=== PATIENT | male | born 1990 | race Caucasian/White ===

== ENCOUNTER 2018-10-27 06:29 | Emergency (ER) | payer OTHER ==
--- NOTE | 2018-10-27 06:58 | EDPHY ---
H & P Stated Complaint: L chest pain, L arm numbness, L side neck pain, dizzy Time Seen by Provider: 10/27/18 06:57 HPI/ROS: CHIEF COMPLAINT: Chest pain, arm pain, dizziness HISTORY OF PRESENT ILLNESS: The patient presents to the ED after he developed chest pain, left arm pain, left arm paresthesias and dizziness at 5:30 a.m. This morning. The patient is a daily drinker. He reports he drinks approximately a 5th of alcohol on a daily basis. The patient denies cutting back on that recently. The patient denies any history of exertional chest pain or shortness of breath. The patient has had some vague pain in the anterior aspect of his right leg over the past 6 weeks. The patient does endorse some mild symptoms of dyspnea and pleurisy. Patient denies any headache. He denies any fall or trauma. He denies neck pain or additional complaints. REVIEW OF SYSTEMS: A comprehensive 10 point review of systems is otherwise negative aside from elements mentioned in the history of present illness. Source: Patient Exam Limitations: No limitations - Personal History Current Tetanus Diphtheria and Acellular Pertussis (TDAP): No - Medical/Surgical History Hx Asthma: No Hx Chronic Respiratory Disease: No Hx Diabetes: No Hx Cardiac Disease: No Hx Renal Disease: No Hx Cirrhosis: No Hx Alcoholism: No Hx HIV/AIDS: No Hx Splenectomy or Spleen Trauma: No Other PMH: HTN - Social History Smoking Status: Heavy smoker - Physical Exam Exam: General Appearance: Alert, no distress Eyes: Pupils equal and round no pallor or injection ENT, Mouth: Mucous membranes moist Respiratory: There are no retractions, lungs are clear to auscultation Cardiovascular: Regular rate and rhythm Gastrointestinal: Abdomen is soft and nontender, no masses, bowel sounds normal Neurological: A&O, normal motor function, normal sensory exam, normal cranial nerves Skin: Warm and dry, no rashes Musculoskeletal: Neck is supple nontender Extremities: Tenderness to palpation over the right fibular head Constitutional: Initial Vital Signs Temperature (C) 36.8 C 10/27/18 06:30 Heart Rate 96 10/27/18 06:30 Respiratory Rate 18 10/27/18 06:30 Blood Pressure 137/105 H 10/27/18 06:30 O2 Sat (%) 98 10/27/18 06:30 O2 Delivery Mode Room Air Allergies/Adverse Reactions: No Known Allergies Allergy (Unverified 10/27/18 06:32) Home Medications: Medication Instructions Recorded NK [No Known Home Meds] 10/27/18 Medical Decision Making - Diagnostics EKG Interpretation: EKG: Complete interpretation has been separately recorded in the [facility] archive. Summary impression: Sinus rhythm, rate 89, no ischemic changes noted Imaging Results: Imaging Impressions Chest X-Ray 10/27/18 08:08 Impression: No focal pneumonia. ED Course/Re-evaluation: The patient presents the emergency department for evaluation of chest discomfort , dizziness and left arm paresthesias. The patient has no risk factors for coronary artery disease. He denies exertional chest pain or shortness of breath. He has a HEART score of 0-1. The patient did have some leg discomfort however has a negative D-dimer. I feel this adequately excludes thromboembolic disease. Chest x-ray demonstrates no evidence of a pneumonia or pneumothorax. The patient does have a history of significant alcohol consumption which certainly could be contributing to his symptoms today. Patient reports he has been in rehab facilities in the past for drug therapy. The patient is interested in considering outpatient resources for his alcohol dependence. The patient has seen Dr. Rocha at the [facility]. The patient will be discharged home at this point time. He is advised to follow up with his PCP for further evaluation management. Differential Diagnosis: Differential diagnosis considered includes acute coronary syndrome, dehydration , pneumonia, pneumothorax, pulmonary embolism - Data Points Laboratory Results: Laboratory Results 10/27/18 06:48 10/27/18 06:48 10/27/18 10/27/18 10/27/18 07:30 06:48 06:48 WBC 4.37 10^3/uL 10^3/uL (3.80-9.50) RBC 4.65 10^6/uL 10^6/uL (4.40-6.38) Hgb 16.3 g/dL g/dL (13.7-17.5) Hct 45.4 % % (40.0-51.0) MCV 97.6 fL fL (81.5-99.8) MCH 35.1 pg H pg (27.9-34.1) MCHC 35.9 g/dL g/dL (32.4-36.7) RDW 12.2 % % (11.5-15.2) Plt Count 184 10^3/uL 10^3/uL (150-400) MPV 9.4 fL fL (8.7-11.7) Neut % (Auto) 35.5 % L % (39.3-74.2) Lymph % (Auto) 49.0 % H % (15.0-45.0) [place] % (Auto) 12.4 % % (4.5-13.0) Eos % (Auto) 2.7 % % (0.6-7.6) Baso % (Auto) 0.2 % L % (0.3-1.7) Nucleat RBC Rel Count 0.0 % % (0.0-0.2) Absolute Neuts (auto) 1.55 10^3/uL L 10^3/uL (1.70-6.50) Absolute Lymphs (auto) 2.14 10^3/uL 10^3/uL (1.00-3.00) Absolute Monos (auto) 0.54 10^3/uL 10^3/uL (0.30-0.80) Absolute Eos (auto) 0.12 10^3/uL 10^3/uL (0.03-0.40) Absolute Basos (auto) 0.01 10^3/uL L 10^3/uL (0.02-0.10) Absolute Nucleated RBC 0.00 10^3/uL 10^3/uL (0-0.01) Immature Gran % 0.2 % % (0.0-1.1) Immature Gran # 0.01 10^3/uL 10^3/uL (0.00-0.10) D-Dimer < 0.27 ug/mLFEU ug/mLFEU (0.00-0.50) Sodium 141 mEq/L mEq/L (135-145) Potassium 4.0 mEq/L mEq/L (3.5-5.2) Chloride 108 mEq/L mEq/L (97-110) Carbon Dioxide 22 mEq/l mEq/l (22-31) Anion Gap 11 mEq/L mEq/L (6-14) BUN 12 mg/dL mg/dL (7-23) Creatinine 0.7 mg/dL mg/dL (0.7-1.3) Estimated GFR > 60 Glucose 92 mg/dL mg/dL (70-100) Calcium 9.8 mg/dL mg/dL (8.5-10.4) Total Bilirubin 0.6 mg/dL mg/dL (0.1-1.4) Conjugated Bilirubin 0.4 mg/dL mg/dL (0.0-0.5) Unconjugated Bilirubin 0.2 mg/dL mg/dL (0.0-1.1) AST 160 IU/L H IU/L (17-59) ALT 208 IU/L H IU/L (21-72) Alkaline Phosphatase 72 IU/L IU/L (38-126) POC Troponin I Total Protein 8.2 g/dL g/dL (6.3-8.2) Albumin 5.0 g/dL g/dL (3.5-5.0) 10/27/18 06:48 WBC RBC Hgb Hct MCV MCH MCHC RDW Plt Count MPV Neut % (Auto) Lymph % (Auto) [place] % (Auto) Eos % (Auto) Baso % (Auto) Nucleat RBC Rel Count Absolute Neuts (auto) Absolute Lymphs (auto) Absolute Monos (auto) Absolute Eos (auto) Absolute Basos (auto) Absolute Nucleated RBC Immature Gran % Immature Gran # D-Dimer Sodium Potassium Chloride Carbon Dioxide Anion Gap BUN Creatinine Estimated GFR Glucose Calcium Total Bilirubin Conjugated Bilirubin Unconjugated Bilirubin AST ALT Alkaline Phosphatase POC Troponin I 0.00 ng/mL ng/mL (0.00-0.08) Total Protein Albumin Point of Care Test Results: Chemistry 10/27/18 06:48 POC Troponin I 0.00 ng/mL ng/mL (0.00-0.08) Departure - Departure Disposition: Home, Routine, Self-Care Clinical Impression: Chest pain, Alcohol dependence, Liver function test abnormality Condition: Good Instructions: Chest Pain (ED) Additional Instructions: 1. The testing done in the emergency department today demonstrates no evidence of a DVT, heart attack or other cardiac abnormality. 2. It is certainly possible your alcohol consumption may be contributing to your symptoms today. You have been given [facility]. I also recommend that you follow with your primary care provider for a recheck this week. You do have elevated liver function test which are likely the result of your alcohol consumption. 3. Return to the ED for markedly worsening symptoms or other concerns. Referrals: Tiago Rocha MD [Primary Care Provider] - As per Instructions
--- NOTE | 2018-10-27 07:03 | CPEKG ---
Test Reason : OPEN Blood Pressure : / mmHG Vent. Rate : 089 BPM Atrial Rate : 089 BPM P-R Int : 136 ms QRS Dur : 089 ms QT Int : 369 ms P-R-T Axes : 071 086 087 degrees QTc Int : 449 ms Sinus rhythm Confirmed by Alverto Oreilly ([id number]) on 10/27/2018 7:02:58 AM Referred By: PHYSICIAN ED Confirmed By:Alverto Oreilly
[2018-10-27 07:23] LABS: PLATELET COUNT 184 10^3/uL (150-400)
[2018-10-27 08:50] VITALS: BP 125/80
== END 2018-10-27 08:56 | disposition home or self-care (01) ==
DX: R07.9 Chest pain, unspecified (principal); M79.602 Pain in left arm; R20.2 Paresthesia of skin; F10.20 Alcohol dependence, uncomplicated; R94.5 Abnormal results of liver function studies; I10 Essential (primary) hypertension
CPT/HCPCS: 84484-ER